=== PATIENT | male | born 1975 | race Caucasian/White ===

== ENCOUNTER 2020-12-10 14:14 | Emergency (ER) | payer OTHER, SELFPAY ==
--- NOTE | ~2020-12-10 | XR_ITS ---
EXAMINATION: XR finger 4th LT min 2V DATE: 12/10/2020 15:36 INDICATION: 2 days of pain at the distal phalanx of the left fourth digit TECHNIQUE: Dorsal palmar, lateral and oblique views of the left fourth digit were obtained COMPARISON: None FINDINGS: Old healed fracture deformity at the neck of the fifth metacarpal. Alignment is otherwise normal. No other fractures identified. Profile joint spaces appear relatively preserved. Soft tissue swelling at the ulnar side of the distal phalanx of the left fourth digit. No cortical erosions or periosteal re action to suggest osteomyelitis. No soft tissue gas or radiopaque foreign bodies. IMPRESSION: 1. No radiopaque foreign body or acute osseous abnormality. Reviewed, dictated and finalized at location 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
--- NOTE | 2020-12-10 17:16 | PC.NURSE ---
NAD, skin signs and breathing wnl; talking loudly - speech normal.
[2020-12-10 18:23] VITALS: BP 134/84; PULSE 94; RESP 17; TEMP 36.2; O2SAT 98
--- NOTE | 2020-12-10 18:38 | ED.UPPEXIN ---
HPI - Extremity Injury (Upper) General Chief Complaint: Extremity Injury, Upper Stated Complaint: L 4th finger swelling Time Seen by Provider: 12/10/20 18:25 Source: patient Mode of arrival: ambulatory Limitations: no limitations History of Present Illness HPI narrative: This is a 45 year old male that presents to the ER for left 4th finger swelling and pain x 3 days. No known injury or trauma. Reports redness to the area. Denies fever. Related Data Home Medications Medication Instructions Recorded Confirmed alprazolam 12/10/20 12/10/20 Allergies Allergy/AdvReac Type Severity Reaction Status Date / Time No Known Allergies Allergy Verified 12/10/20 18:25 Review of Systems Review of Systems: Narrative: CONSTITUTIONAL: Denies fever SKIN: Reports pain and swelling All systems reviewed & are unremarkable except as noted in HPI and below PMFSH Family History Family History (Updated 02/25/15 @ 14:42 by DOCTOR UNKNOWN) Other Diabetes mellitus Social History Social History (Updated 12/10/20 @ 18:46 by Olga Hernandez PA-C) Smoking status: Former smoker Smoking end date: 10/25/00 Alcohol intake: current Gender identity (if verbalized by the patient): Male Exam Narrative: Exam Narrative: GENERAL: Well-appearing, well-nourished, and in no acute distress. HEAD: Normocephalic, atraumatic. EYES: EOMI. EXTREMITIES: Normal range of motion. Mild-moderate edema to the left fourth finger distal phalanx surrounding the proximal nailbed with central fluctuance consistent with paronychia SKIN: Warm, dry, no rash. NEURO: No focal deficits. Alert and oriented x3. PSYCH: Normal mood and affect Course Vital Signs Vital signs: Vital Signs Temperature 97.2 F L 12/10/20 18:23 Pulse Rate 94 12/10/20 18:23 Respiratory Rate 17 12/10/20 18:23 Blood Pressure 134/84 12/10/20 18:23 Pulse Oximetry 98 12/10/20 18:23 Temperature 97.2 F L 12/10/20 18:23 Pulse Rate 94 12/10/20 18:23 Respiratory Rate 17 12/10/20 18:23 Blood Pressure 134/84 12/10/20 18:23 Pulse Oximetry 98 12/10/20 18:23 Procedures Abscess I/D hand: Date of Incision: 12/10/20 Time of Incision: 19:22 Side (if applicable): left Local Anesthetic: lidocaine 1% Amount of anesthesia used (mL): 4 Technique: incised with #11 blade Packing used?: none I&D Results: Pus and Blood MDM - Extremity Injury (Upper) MDM Narrative Medical decision making narrative: Patient presents the emergency department for paronychia. Successfully drained. X-ray is without acute foreign body or osseous abnormalities. Instructed on wound care. Will be started on oral antibiotics. Is to follow-up with primary care doctor. Was given warnings to return to the ER Imaging Data Radiologist's impression: ITS Impressions Finger X-Ray 12/10/20 15:37 IMPRESSION: 1. No radiopaque foreign body or acute osseous abnormality. Critical Care Time Critical Care Time Critical Care Time: No Discharge Plan Discharge Clinical Impression: Paronychia Patient Disposition: Home, Self-Care Condition: Stable Instructions: Antibiotic Form, Paronychia (ED) Additional Instructions: Return if symptoms worsen or concerns: any increase in redness, swelling, pain, or fever over 101 Take antibiotics as directed. Clean wound with mild soapy water. Apply antibiotic ointment and clean dressing at least twice daily. Warm compresses 2 times a day for 30 minutes each Follow up with primary care in the next 2-3 days for re-evaluation Prescriptions: New cephalexin 500 mg capsule 500 mg PO Q8H 7 Days Qty: 21 RF: 0 No Action alprazolam 0.25 mg tablet RF: 0 Follow-up/Referrals: PHYSICIAN,ADOPTION COUNSELOR [Primary Care Provider] -
== END 2020-12-10 20:03 | disposition home or self-care (01) ==
PROVIDERS: Emergency Provider Emergency Medicine
DX: L03.012 Cellulitis of left finger (principal); Z87.891 Personal history of nicotine dependence
CPT/HCPCS: 26010; 73140; 99283